=== PATIENT | female | born 1935 | race Caucasian/White ===

== ENCOUNTER 2016-11-14 13:03 | Outpatient (CLI) | payer OTHER ==
--- NOTE | 2016-11-14 14:37 | DIAGNOSTIC IMAGING REPORT ---
PROCEDURE: XR CHEST 2 VIEW INDICATION: RIB PX OSTEOPOROSIS TECHNIQUE: PA and lateral views. COMPARISON: None. FINDINGS: Lungs are clear. Heart and mediastinum are normal. Thorax is normal. IMPRESSION: 1. Negative chest.
== END 2016-11-14 23:00 ==
LOC: XR SRH 13:03
DX: R07.81 Pleurodynia (principal); M81.0 Age-related osteoporosis without current pathological fracture

== ENCOUNTER 2017-04-14 10:26 | Outpatient (CLI) | payer OTHER ==
--- NOTE | 2017-04-14 11:06 | DIAGNOSTIC IMAGING REPORT ---
PROCEDURE: DEXA BONE DENSITY STUDY CLINICAL INDICATION: OSTEOPOROSIS COMPARISON: None. FINDINGS: LUMBAR SPINE: Bone mineral density 0.739 g/cm2, T score -2.8 osteoporosis LEFT HIP: Bone mineral density 0.844 g/cm2, T score -0.8 normal LEFT FEMORAL NECK: Bone mineral density 0.633 g/cm2, T score -1.9 osteopenia FRACTURE RISK CALCULATION ( when applicable): 10-year fracture risk of a major osteoporotic fracture and of a hip fracture not reported because some T-score at or below -2.5 (T score greater or equal to -1.0 to: NORMAL) (T score from -1.1 to -2.4: OSTEOPENIA) (T score ess than or equal to -2.5: OSTEOPOROSIS) IMPRESSION: 1. Lumbar spine osteoporosis, osteopenia femoral neck.
== END 2017-04-14 23:00 | disposition home or self-care (01) ==
LOC: XR SRH 10:26
DX: M81.0 Age-related osteoporosis without current pathological fracture (principal)